=== PATIENT | female | born 2000 | race African-American/Black ===

== ENCOUNTER 2020-10-02 12:15 | Inpatient (IN) | payer OTHER ==
[2020-10-02] MEDS ORDERED: OXYTOCIN 30 UNITS in 0.9% NS 30 UNIT/500 ML INFUS.BAG IVPB SCH (16:15)
[2020-10-02 16:44] VITALS: BMI 35.9
[2020-10-02] MEDS ORDERED: OXYTOCIN 30 UNITS in 0.9% NS 30 UNIT/500 ML INFUS.BAG IVPB ONE ×2 (18:13→22:14)
[2020-10-02 18:33] LABS: BASO % 0.4 % (0-2.0); EOS % 0.2 % (0-4.5); HEMATOCRIT 22.1 % (32.4-45.2); LYMPH % 17.9 % (8-40); MCH 19.4 pg (25.7-33.7); MCHC 31.6 g/dl (32.0-36.0); MEAN CELL VOLUME 61.4 fl (80-96); MEAN PLT VOLUME 9.1 fl (7.5-11.1); MONO % 7.5 % (3.8-10.2); RBC 3.59 M/mm3 (3.60-5.2); WHITE BLOOD COUNT 9.1 K/mm3 (4.0-10.0)
[2020-10-02 18:43] LABS: INR 1.02 (0.83-1.09); PROTHROMBIN TIME (PATIENT) 12.3 SEC (9.7-13.0)
[2020-10-02] MEDS ORDERED: ELECTROLYTE-148 SOLN 1,000 ML IV SCH (18:45)
[2020-10-02 18:59] LABS: CALCIUM 8.4 mg/dL (8.5-10.1)
[2020-10-02 19:00] LABS: BLOOD UREA NITROGEN 3.4 mg/dL (7-18)
[2020-10-02 19:03] LABS: CREATININE 0.5 mg/dL (0.55-1.3)
[2020-10-02 20:20] LABS: ANISOCYTOSIS 3+; MACROCYTOSIS 0; PLATELET ESTIMATE DECREASED; TARGET CELLS 1+; TEAR DROP CELLS 1+
[2020-10-02 20:22] LABS: PLATELET COUNT 108 K/MM3 (134-434)
[2020-10-02] MEDS ORDERED: FENTANYL/BUPIVACAINE/NS/PF - PCEA - 50 ML DISP.SYRIN EP ONE (21:41)
[2020-10-02] MEDS ORDERED: PCA PUMP NR ONE (21:41)
[2020-10-02] MEDS ORDERED: NALOXONE HCL 0.4 MG/ML VIAL IVPUSH PRN (21:49)
[2020-10-02] MEDS ORDERED: BUPIVACAINE HCL/PF 0.25% (2.5MG/ML) 10 ML VIAL ONE (21:51)
[2020-10-02] MEDS ORDERED: FENTANYL/BUPIVACAINE/NS/PF - PCEA - 50 ML DISP.SYRIN EP SCH (22:00)
[2020-10-03] MEDS ORDERED: FENTANYL/BUPIVACAINE/NS/PF - PCEA - 50 ML DISP.SYRIN EP ONE (02:49)
[2020-10-03] MEDS ORDERED: OXYTOCIN 20 UNITS in 0.9% NS 20 UNIT/1,000 ML INFUS.BAG IV ONE ×2 (06:25→09:29)
[2020-10-03] MEDS ORDERED: IBUPROFEN 600 MG TABLET (FP) PO ONE (07:13)
[2020-10-03] MEDS ORDERED: ACETAMINOPHEN 325 MG TABLET (FP) ONE (07:13)
[2020-10-03] MEDS: ACETAMINOPHEN 325 MG TABLET (FP) PO PRN ×2 (07:15→23:42)
[2020-10-03] MEDS: IBUPROFEN 600 MG TABLET (FP) PO PRN ×2 (07:15→23:43)
[2020-10-03] MEDS ORDERED: METHYLERGONOVINE MALEATE 0.2 MG/1 ML AMP IM PRN (07:23)
[2020-10-03] MEDS ORDERED: BENZOCAINE 20% 57 GM BOTTLE TP PRN (07:23)
[2020-10-03] MEDS ORDERED: BENZOCAINE 28 GM HEMORRHOIDAL OINTMENT TP PRN (07:23)
[2020-10-03] MEDS ORDERED: BISACODYL 10 MG SUPP.RECT RC PRN (07:23)
[2020-10-03] MEDS ORDERED: WITCH HAZEL 50% (TUCKS) 40 PAD/JAR PAD TP PRN (07:23)
[2020-10-03] MEDS ORDERED: OXYTOCIN 20 UNITS in 0.9% NS 20 UNIT/1,000 ML INFUS.BAG IV SCH (07:30)
[2020-10-03] MEDS ORDERED: MORPHINE SULFATE 2 MG/ML VIAL ONE ×2 (09:26)
[2020-10-03] MEDS ORDERED: FERROUS SO4 325 MG TABLET (FP) ONE ×2 (09:57→18:38)
[2020-10-03] MEDS: FERROUS SO4 325 MG TABLET (FP) PO SCH ×2 (10:00→18:40)
[2020-10-03] MEDS: PRENATAL VITAMINS W/ FOLIC ACID TABLET (FP) PO SCH (10:00)
[2020-10-03 10:15] LABS: BASO % 0.3 % (0-2.0); HEMATOCRIT 15.2 % (32.4-45.2); LYMPH % 8.9 % (8-40); MCH 20.4 pg (25.7-33.7); MCHC 31.5 g/dl (32.0-36.0); MEAN CELL VOLUME 64.7 fl (80-96); MONO % 10.6 % (3.8-10.2); NEUT % 80.2 % (42.8-82.8); PLATELET COUNT 75 K/MM3 (134-434); RBC 2.34 M/mm3 (3.60-5.2); RDW 24.2 % (11.6-15.6); WHITE BLOOD COUNT 12.4 K/mm3 (4.0-10.0)
[2020-10-03 10:18] LABS: HEMOGLOBIN 4.8 GM/dL (10.7-15.3)
[2020-10-03 11:03] LABS: PLATELET ESTIMATE DECREASED
[2020-10-03] MEDS ORDERED: morphine SULFATE 4 MG/ML VIAL IVPB ONE (11:45)
[2020-10-04 07:20] LABS: BASO % 0.5 % (0-2.0); EOS % 0.7 % (0-4.5); HEMATOCRIT 29.3 % (32.4-45.2); HEMOGLOBIN 9.5 GM/dL (10.7-15.3); LYMPH % 19.5 % (8-40); MCH 23.2 pg (25.7-33.7); MCHC 32.6 g/dl (32.0-36.0); MEAN CELL VOLUME 71.3 fl (80-96); MEAN PLT VOLUME 10.9 fl (7.5-11.1); MONO % 8.2 % (3.8-10.2); NEUT % 71.1 % (42.8-82.8); PLATELET COUNT 83 K/MM3 (134-434); RBC 4.11 M/mm3 (3.60-5.2); RDW 26.9 % (11.6-15.6); WHITE BLOOD COUNT 15.6 K/mm3 (4.0-10.0)
[2020-10-04] MEDS: FERROUS SO4 325 MG TABLET (FP) PO SCH ×2 (09:25→17:55)
[2020-10-04] MEDS: PRENATAL VITAMINS W/ FOLIC ACID TABLET (FP) PO SCH (09:25)
[2020-10-04] MEDS: IBUPROFEN 600 MG TABLET (FP) PO PRN (09:26)
[2020-10-04] MEDS: ACETAMINOPHEN 325 MG TABLET (FP) PO PRN (09:26)
[2020-10-04 16:45] VITALS: TEMP 98.2
[2020-10-04] MEDS ORDERED: SENNOSIDES/DOCUSATE COMBO (SENNA PLUS) TABLET (UD) PO PRN (22:00)
[2020-10-05 09:22] LABS: BASO % 0.3 % (0-2.0); EOS % 0.9 % (0-4.5); HEMATOCRIT 29.9 % (32.4-45.2); HEMOGLOBIN 9.9 GM/dL (10.7-15.3); LYMPH % 16.2 % (8-40); MCH 23.3 pg (25.7-33.7); MCHC 33.1 g/dl (32.0-36.0); MEAN CELL VOLUME 70.3 fl (80-96); MEAN PLT VOLUME 9.6 fl (7.5-11.1); MONO % 6.2 % (3.8-10.2); NEUT % 76.4 % (42.8-82.8); PLATELET COUNT 99 K/MM3 (134-434); RBC 4.25 M/mm3 (3.60-5.2); RDW 27.4 % (11.6-15.6); WHITE BLOOD COUNT 17.7 K/mm3 (4.0-10.0)
[2020-10-05] MEDS: FERROUS SO4 325 MG TABLET (FP) PO SCH (09:50)
[2020-10-05] MEDS: PRENATAL VITAMINS W/ FOLIC ACID TABLET (FP) PO SCH (09:50)
[2020-10-05 11:47] VITALS: BP 110/62; PULSE 72
[2020-10-05 12:16] LABS: POC NITRAZINE POS
[2020-10-05 12:22] LABS: PLATELET ESTIMATE DECREASED
== END 2020-10-05 13:00 | disposition home or self-care (01) | DRG 560 ==
LOC: JDEL 12:15 → JLDR 15:30 → J3W 10-03 22:17
PROVIDERS: ADMIT Internal Medicine; ATTEND Internal Medicine
PROC: 10E0XZZ Delivery of Products of Conception, External Approach (ICD-10-PCS; principal; 2020-10-03)
PROC: 30233N1 Transfusion of Nonautologous Red Blood Cells into Peripheral Vein, Percutaneous Approach (ICD-10-PCS; 2020-10-03)
DX: O41.03X0 Oligohydramnios, third trimester, not applicable or unspecified (principal); O99.12 Other diseases of the blood and blood-forming organs and certain disorders involving the immune mechanism complicating childbirth; O72.1 Other immediate postpartum hemorrhage; O48.0 Post-term pregnancy; O99.02 Anemia complicating childbirth; O62.3 Precipitate labor; Z3A.40 40 weeks gestation of pregnancy; D72.829 Elevated white blood cell count, unspecified; D62 Acute posthemorrhagic anemia; O99.214 Obesity complicating childbirth; Z37.0 Single live birth
CPT/HCPCS: 36415; 36430; 59025; 76819-TC; 80048; 83986-QW; 85025; 85610; 85730; 86780; 86850; 86900; 86901; 86922; C9803; P9058; U0003; U0005